=== PATIENT | female | born 1955 ===

== ENCOUNTER → 2017-06-30 | Outpatient (CLI) | payer OTHER | LOC: FIMAGING 16:50 | PROVIDERS: ATTEND Family Medicine ==

== ENCOUNTER 2018-06-23 | Emergency (ER) | payer OTHER | END 2018-06-23 17:20 | disposition home or self-care (01) | DX: N13.2 Hydronephrosis with renal and ureteral calculous obstruction (principal); K80.20 Calculus of gallbladder without cholecystitis without obstruction; E86.9 Volume depletion, unspecified; E11.9 Type 2 diabetes mellitus without complications | CPT/HCPCS: 74176; 76705; 96361; 96374; 96375; 96376; 99285; J1170; J1885; J2405; Q9967 ==

== ENCOUNTER → 2018-06-27 | Outpatient (CLI) | payer OTHER | LOC: FIMAGING 09:02 | PROVIDERS: ATTEND Urology | DX: N20.1 Calculus of ureter (principal) ==

== ENCOUNTER → 2018-07-11 | Outpatient (CLI) | payer OTHER | LOC: BMCIMAGING 13:16 | PROVIDERS: ATTEND Urology | DX: Z09 Encounter for follow-up examination after completed treatment for conditions other than malignant neoplasm (principal); Z87.442 Personal history of urinary calculi ==